=== PATIENT | female | born 1985 | race Two or more races ===

== ENCOUNTER 2022-08-23 16:47 | Emergency (ER) | payer MEDICAID, OTHER ==
[~2022-08-23] VITALS: Ht 157.5 cm; Wt 55.0 kg
[2022-08-23 17:49] LABS: Urine Bacteria None Seen /hpf (None Seen); Urine WBC None Seen /hpf (0 - 5)
[2022-08-23 18:19] LABS: Basophils # (auto) 0 10 ^3/uL (0-0.2); Basophils % (auto) 0.3 % (0.0-2.0); Eosinophils # (auto) 0 10 ^3/uL (0-0.8); Eosinophils % (auto) 0.5 % (0.0-7.0); Hematocrit 41.3 % (36.0-46.0); Hemoglobin 14.1 g/dL (12.2-16.2); Lymphocytes # (auto) 0.7 10 ^3/uL (0.4-5.4); Lymphocytes % (auto) 7.2 % (10.0-50.0); Mean Corpuscular Hemoglobin 30.1 pg (28.0-32.0); Mean Corpuscular Volume 88.3 fL (80.0-100.0); Monocytes # (auto) 0.6 10 ^3/uL (0-1.3); Monocytes % (auto) 5.9 % (0.0-12.0); Neutrophils # (auto) 8.3 10 ^3/uL (1.6-8.6); Neutrophils % (auto) 86.1 % (37.0-80.0); Nucleated Red Blood Cells % 0.1 %; Red Blood Cells 4.68 10^6/uL (4.0-5.20); Red Cell Distribution Width 13.9 % (11.8-14.3); White Blood Cell 9.6 10^3/uL (4.4-10.8)
[2022-08-23 18:22] LABS: Urine Blood Normal /uL (Negative); Urine Specific Gravity 1.005 (1.001-1.035)
[2022-08-23 18:24] LABS: Albumin 4.5 g/dL (3.4-5.0); Calcium 8.7 mg/dL (8.5-10.1); Potassium 3.8 mmol/L (3.5-5.1)
[2022-08-23 18:27] LABS: BUN/Creatinine Ratio 25.7 (10.0-20.0); Bilirubin, Total 0.4 mg/dL (0.2-1.0); Total Protein 7.8 g/dL (6.4-8.2)
[2022-08-23 23:45] VITALS: BP 106/61
== END 2022-08-23 23:45 | disposition home or self-care (01) ==
LOC: ER 16:47
DX: R20.2 Paresthesia of skin (principal); R51.9 Headache, unspecified; Z32.02 Encounter for pregnancy test, result negative
CPT/HCPCS: 36415; 70450; 80053; 81001; 81025; 85025